=== PATIENT | male | born 1960 | race Caucasian/White ===

== ENCOUNTER 2017-11-18 20:28 | Emergency (ER) | payer BC ==
[2017-11-19] MEDS: NORCO 5/325MG TABLET (BULK FOR ED) PO (01:18)
[2017-11-19] MEDS: CLINDAMYCIN 150 MG CAP PO (01:19)
== END 2017-11-19 02:00 | disposition home or self-care (01) ==
LOC: M ED 20:28
DX: L03.116 Cellulitis of left lower limb (principal); E11.9 Type 2 diabetes mellitus without complications; I10 Essential (primary) hypertension; N28.9 Disorder of kidney and ureter, unspecified; Z79.899 Other long term (current) drug therapy; Z79.82 Long term (current) use of aspirin
CPT/HCPCS: 73610